=== PATIENT | female | born 1980 | race Caucasian/White ===

== ENCOUNTER → 2021-10-21 15:09 | Outpatient (CLI) | payer OTHER, SELFPAY ==
[2021-10-21 16:21] LABS: Add Manual Diff / Slide Review NO; Basophils Absolute Auto 0 /uL (0-100); Basophils Percent Auto 0.4 % (0-2); Eosinophils Absolute Auto 100 /uL (0-450); Eosinophils Percent Auto 0.9 % (2-4); Hemoglobin 12.3 g/dL (12.0-16.0); Lymphocytes Absolute Auto 1900 /uL (1100-4500); Lymphocytes Percent Auto 26.4 % (25-40); Mean Corpuscular HGB Conc 34.2 % (30-36); Mean Corpuscular Hemoglobin 29.7 PG (26-34); Mean Corpuscular Volume 86.7 fL (80-100); Monocytes Absolute Auto 400 /uL (0-900); Monocytes Percent Auto 5.4 % (3-14); Neutrophils Absolute Auto 4900 /uL (1500-7000); Neutrophils Percent Auto 66.9 % (50-75); Platelet Count 300 X10^3/uL (150-400); Red Blood Cell Count 4.15 X10^6/uL (4.0-5.2); Red Cell Distribution Width 13.3 % (11.6-14.8); White Blood Cell Count 7.3 X10^3/uL (4.5-11.0)
[2021-10-21 17:38] LABS: Hepatitis B Surface Antigen NEGATIVE s/c (NEGATIVE); Rubella Antibody IgG 88.4 IU/mL (>15)
[2021-10-21 18:07] LABS: HIV 1 & 2 Ab/Ag 4th Gen Combo NEGATIVE (NEGATIVE); Hep C Virus Ab w/Reflex Quant NEGATIVE s/c (NEGATIVE)
[2021-10-22 07:11] LABS: Varicella IgG Antibody 516 index (Immune >165)
[2021-10-22 08:05] LABS: RPR Screen Non Reactive (Non Reactive)
== END ==
PROVIDERS: Referring Provider Specialist; Visit Provider Specialist
DX: Z36.0 Encounter for antenatal screening for chromosomal anomalies (principal); O09.521 Supervision of elderly multigravida, first trimester
CPT/HCPCS: 36415; 80055; 86787; 86803; 86850; 86900; 86901; 87086; 87389

== ENCOUNTER → 2021-12-15 13:52 | Outpatient (CLI) | payer OTHER, SELFPAY ==
[2021-12-17 21:07] LABS: AFP Value 33.6 ng/mL (.); Gest Age on Col Date 17.9 weeks (.); Insulin Dep Diabetes No (.); OSBR Risk 1IN 10000 (.); Results Report (.); Test Results *Screen Negative* (.)
== END ==
PROVIDERS: Referring Provider Specialist; Visit Provider Specialist
DX: O09.521 Supervision of elderly multigravida, first trimester (principal); Z36.0 Encounter for antenatal screening for chromosomal anomalies; Z3A.17 17 weeks gestation of pregnancy
CPT/HCPCS: 36415; 82105

== ENCOUNTER → 2022-01-04 08:57 | Outpatient (CLI) | payer OTHER, SELFPAY ==
--- NOTE | 2022-01-04 08:58 | DI.US.S_ITS ---
PROCEDURE: US OB >= 14 WEEKS FETUS INDICATIONS: 20 WEEK ANATOMY SCAN OUTSIDE/PRIOR DATING DATA: Last menstrual period (LMP): 08/12/2021. LMP-based estimated date of delivery (PONCE): 05/19/2022. First dating scan (date and location): 10/21/2021. Estimated date of delivery (PONCE) from first dating scan: 05/19/2022. The calculations are made using the ultrasound PONCE of 05/19/2022. TECHNIQUE: Real-time scanning was performed of the fetus, with image documentation and biometric measurements. COMPARISON: None. FINDINGS: General: A single living intrauterine gestation is present. Presentation: Vertex. Placenta: Placental position is posterior , without previa. Amniotic fluid index: 15.8 cm, normal range is 5-24 cm. heart rate: 149 beats per minute. Maternal cervical canal: 4.0 cm long. Normal lower limit is 2.5 cm. biometrics: Biparietal diameter: 5.2 cm. 21 weeks 5 days. Head circumference: 19.2 cm. 21 weeks 3 days. Abdominal circumference: 17.5 cm. 22 weeks 3 days. Femur length: 3.7 cm. 21 weeks 5 days. Estimated gestational age by initial ultrasound: 20 weeks 5 days. Composite gestational age from present scan: 21 weeks 6 days Estimated weight and percentile: 471 grams, 97th percentile. Anatomic survey: Neuro: Ventricles are non-dilated at less than 10 mm. Cisterna magna is normal at 3-11 mm. Cerebellum is normal in size and morphology. Nuchal skin fold: Normal at less than 6 mm between 14-21 weeks gestational age. Face: Nose and lips, facial profile are normal. Spine: No evidence for spina bifida. Heart: 4-chambered heart is present, with normal ventricular outflow tracts. An echogenic intracardiac focus is noted in the left ventricle. Diaphragm: Diaphragm is intact. Stomach: Left-sided stomach is present. Kidneys: No hydronephrosis. Normal is less than 5 mm in 2nd trimester, less than 7 mm in 3rd trimester. Cord: 3-vessel cord has orthotopic insertion. Bladder: Normal in size. Extremities: All 4 extremities identified. IMPRESSION: 1. Anatomy completely visualized. All anatomy is normal except for an echogenic intracardiac focus in the left ventricle. Echogenic intracardiac foci is nonspecific but can be seen with trisomy 21. Recommend follow-up ultrasound and correlation with serology. 2. Anterior uterine fibroid measuring 2.0 x 2.3 x 1.4 cm. We strive to produce accurate, complete, and clear reports of imaging services. To assist us in improving patient care, this report was composed using standard report templates and voice recognition software. Therefore, it may contain abnormal punctuation, insertions and/or omissions. Occasional wrong-word or sound-alike substitutions may occur. Though we review the report and make efforts to correct it, we do recommend that the report be read carefully in proper context to recognize any text inaccuracies. Dictated by: Harry Gillespie M.D. on 01/04/2022 at 10:20 Approved by: Harry Gillespie M.D. on 01/04/2022 at 10:31
== END ==
PROVIDERS: Referring Provider Specialist; Visit Provider Specialist
DX: O34.12 Maternal care for benign tumor of corpus uteri, second trimester (principal); D25.9 Leiomyoma of uterus, unspecified; Z3A.21 21 weeks gestation of pregnancy
CPT/HCPCS: 76811

== ENCOUNTER → 2022-02-22 08:38 | Outpatient (CLI) | payer OTHER, SELFPAY ==
[2022-02-22 11:42] LABS: Hemoglobin 10.7 g/dL (12.0-16.0)
[2022-02-22 12:15] LABS: GTT (PREG) 1 Hour PP 50gm Dose 78 mg/dL (76-139)
== END ==
PROVIDERS: Referring Provider Obstetrics & Gynecology; Visit Provider Obstetrics & Gynecology
DX: Z34.02 Encounter for supervision of normal first pregnancy, second trimester (principal); Z3A.27 27 weeks gestation of pregnancy
CPT/HCPCS: 36415; 82950; 85014; 85018